=== PATIENT | female | born 1965 | race Hispanic/Latino ===

== ENCOUNTER → 2024-04-19 | Day surgery (SDC) | payer OTHER ==
[~2024-04-19] MED LIST: ASPIR 8181 MG PO; B-121000 MC2; CALCIUM PO; CENTRUM COMPLE1 EACH PO; DEXAMETHASONE SOD PHOS INJ 4 MG/ML SDV ONE; FENTANYL CITRATE/PF 100MCG/2 ML INJ ONE; HYDROCODON-ACE1 EA11 PO; HYDROCODON-ACE1 EAC9 PO; LIDOCAINE HCL 2% LOCAL INJ 5 ML SDV VIAL INJ ONE; LOSARTAN POTASS25 MG PO; MIDAZOLAM HCL 2 MG/2 ML VIAL ONE; NEOSTIGMINE 1 MG/ML 10ML VIAL ONE; OCUVITE; ONDANSETRON HCL INJ 2MG/ML 2ML 2 MG/ML VIAL ONE; PROPOFOL IV EMULSION 10 MG/ML 20 ML VIAL ONE; SEVOFLURANE INHAL SOLN 250 ML PEN BTL ONE; VIT D PO; VITAMIN D31250 MCG; [UNRECOGNIZED DRUG - OTHER] PO
[2024-04-19] MEDS: LACTATED RINGER'S 1,000 ML ONE (09:51)
[2024-04-19 12:59] VITALS: TEMP 99.1
[2024-04-19 13:55] VITALS: BP 138/81; PULSE 80; RESP 18; O2SAT 99
== END | disposition home or self-care (01) ==
LOC: OR 08:36
PROVIDERS: ATTEND Specialist
DX: S82.102A Unspecified fracture of upper end of left tibia, initial encounter for closed fracture (principal); E11.9 Type 2 diabetes mellitus without complications; I10 Essential (primary) hypertension; Z71.3 Dietary counseling and surveillance; Z71.82 Exercise counseling; W01.0XXA Fall on same level from slipping, tripping and stumbling without subsequent striking against object, initial encounter; Y93.89 Activity, other specified; Y92.89 Other specified places as the place of occurrence of the external cause; Y99.8 Other external cause status; Z88.1 Allergy status to other antibiotic agents; Z01.810 Encounter for preprocedural cardiovascular examination; Z79.899 Other long term (current) drug therapy
CPT/HCPCS: 27535; 76000; 93005; C1713 ×9; J0690; J1100; J2001; J2250; J2405; J2704; J3010; J7121; J2710